=== PATIENT | female | born 1960 | race Caucasian/White ===

== ENCOUNTER 2021-09-08 17:39 | Emergency (ER) | payer OTHER ==
[2021-09-08 17:54] VITALS: BP 166/88; PULSE 91; TEMP 98.4; BMI 23.8
== END 2021-09-08 17:56 | disposition home or self-care (01) ==
LOC: FER 17:39
PROC: 0HQFXZZ Repair Right Hand Skin, External Approach (ICD-10-PCS; principal; 2021-09-08)
DX: S61.011A Laceration without foreign body of right thumb without damage to nail, initial encounter (principal); W26.8XXA Contact with other sharp object(s), not elsewhere classified, initial encounter
CPT/HCPCS: 12001-25; 99282-25

== ENCOUNTER 2024-02-24 20:33 | Emergency (ER) | payer BC, OTHER ==
[2024-02-24 20:52] VITALS: BP 146/81; PULSE 85; RESP 18; TEMP 98.3; BMI 22.1
[2024-02-24] MEDS ORDERED: ACETAMINOPHEN 325 MG TABLET (FP) ONE (21:10)
[2024-02-24] MEDS: ACETAMINOPHEN 500 MG TABLET (FP) PO ONE (21:18)
== END 2024-02-24 23:14 | disposition home or self-care (01) ==
LOC: JER 20:33
DX: S00.33XA Contusion of nose, initial encounter (principal); S60.221A Contusion of right hand, initial encounter; W01.198A Fall on same level from slipping, tripping and stumbling with subsequent striking against other object, initial encounter; Y93.01 Activity, walking, marching and hiking
CPT/HCPCS: 70160-TC-FY; 70450-TC; 72125-TC; 73130-TC-RT-FY; 99284-25